=== PATIENT | male | born 1975 | race Caucasian/White ===

== ENCOUNTER 2016-10-16 10:55 | Emergency (ER) | payer SELFPAY ==
[~2016-10-16] VITALS: Ht 175.3 cm; Wt 80.0 kg
[2016-10-16 11:48] LABS: BASOPHILS % 0.7 % (0.0-2.0); EOSINOPHILS % 1.5 % (0.0-5.0); HEMATOCRIT. 44.4 % (42.0-52.0); HEMOGLOBIN. 15.7 g/dL (14.0-18.0); MEAN CORPUSCULAR HEMOGLOBIN 32.6 pg (28.0-32.0); MEAN CORPUSCULAR HGB CONC 35.4 g/dL (31.0-37.0); MEAN CORPUSCULAR VOLUME 92.2 fL (80.0-94.0); MEAN PLATELET VOLUME 7.1 fl (7.4-10.4); MONOCYTES % 9.6 % (2.0-8.0); NEUTROPHILS % 70.2 % (40.0-76.0); PLATELET 374 x1000/uL (130-400); RED BLOOD CELL COUNT 4.81 mill/uL (4.7-6.1); RED CELL DISTRIBUTION WIDTH 12.4 % (11.6-14.6); WHITE BLOOD COUNT 9.5 x1000/uL (4.5-11.0)
[2016-10-16 13:30] VITALS: BP 112/78
[2016-10-16 14:00] LABS: ALANINE AMINOTRANSFERASE 24 IU/L (13-61); ALBUMIN 3.4 g/dL (3.4-5.0); AMYLASE 27 IU/L (25-115); ANION GAP 15; CALCIUM 8.8 mg/dL (8.5-10.1); CARBON DIOXIDE 24 mEq/L (21-32); CHLORIDE 100 mEq/L (98-107); INDEX HEMOLYSI 1 (1-3); INDEX ICTERIC 1 (1-4); INDEX LIPEMIC 1 (1-3); LIPASE 84 IU/L (73-393); UREA NITROGEN BLOOD 11 mg/dL (7-21); eGFR > 60 mL/min (>60)
[2016-10-16 14:04] LABS: BETA HYDROXYBUTYRATE 0.4 mMol/L (0.0-0.3); TROPONIN I < 0.02 ng/mL (0.00-0.04)
== END 2016-10-16 14:24 | disposition home or self-care (01) ==
LOC: ER 12:06
DX: E11.65 Type 2 diabetes mellitus with hyperglycemia (principal); E78.00 Pure hypercholesterolemia, unspecified; E05.90 Thyrotoxicosis, unspecified without thyrotoxic crisis or storm; G62.9 Polyneuropathy, unspecified
CPT/HCPCS: 36415; 71010; 80053; 82010; 82150; 82962; 83690; 84484; 85025; 93005; 99285; Z7610

== ENCOUNTER 2019-06-17 18:37 | Emergency (ER) | payer OTHER ==
[~2019-06-17] VITALS: Ht 175.3 cm; Wt 79.0 kg
[2019-06-17] MEDS ORDERED: KETOROLAC 30MG/ML VIAL IV STA (22:32)
[2019-06-17 22:51] LABS: BASOPHILS % 1.1 % (0.0-2.0); EOSINOPHILS % 3.8 % (0.0-5.0); HEMATOCRIT. 46.9 % (42.0-52.0); HEMOGLOBIN. 16.8 g/dL (14.0-18.0); LYMPHOCYTES % 37.9 % (20.0-50.0); MEAN CORPUSCULAR HEMOGLOBIN 32.3 pg (28.0-32.0); MEAN CORPUSCULAR VOLUME 90.3 fL (80.0-94.0); MONOCYTES % 6.7 % (2.0-8.0); NEUTROPHILS % 50.5 % (40.0-76.0); PLATELET 434 x1000/uL (130-400); RED BLOOD CELL COUNT 5.19 mill/uL (4.7-6.1)
[2019-06-17 22:55] LABS: CHLORIDE 103 mEq/L (98-107)
[2019-06-17 23:38] LABS: CLARITY URINE CLEAR (CLEAR); COLOR URINE YELLOW (YELLOW); KETONES URINE TRACE (NEGATIVE); LEUKOCYTE ESTERASE URINE NEGATIVE (NEGATIVE); NITRITE URINE NEGATIVE (NEGATIVE); OCCULT BLOOD URINE NEGATIVE (NEGATIVE); PH URINE 5.5 (4.5-8.0); PROTEIN URINE NEGATIVE (NEGATIVE); SPECIFIC GRAVITY URINE 1.044 (1.005-1.030); UROBILINOGEN URINE 0.2 E.U./dL (0.2-1.0)
[2019-06-18 01:18] VITALS: BP 125/77
== END 2019-06-18 01:20 | disposition home or self-care (01) ==
LOC: ER 21:00
DX: R10.32 Left lower quadrant pain (principal); R03.0 Elevated blood-pressure reading, without diagnosis of hypertension
CPT/HCPCS: 36415; 74021; 76705; 80053; 81003; 82962; 83690; 85025; 96374; 99284; J1885

== ENCOUNTER 2022-09-01 01:53 | Inpatient (IN) | payer OTHER ==
[~2022-09-01] VITALS: Ht 175.3 cm; Wt 72.1 kg
[2022-09-01] MEDS ORDERED: ONDANSETRON HCL 4MG/2ML INJ IV ONE (02:45)
[2022-09-01] MEDS ORDERED: ACETAMINOPHEN 500MG TABLET PO ONE (02:45)
[2022-09-01 03:35] LABS: BASOPHILS % 0.6 % (0.0-2.0); EOSINOPHILS % 2.3 % (0.0-5.0); HEMATOCRIT. 43.9 % (42.0-52.0); HEMOGLOBIN. 15.3 g/dL (14.0-18.0); LYMPHOCYTES % 24.2 % (20.0-50.0); MEAN CORPUSCULAR HEMOGLOBIN 32.3 pg (28.0-32.0); MEAN CORPUSCULAR VOLUME 92.4 fL (80.0-94.0); MEAN PLATELET VOLUME 7.1 fl (7.4-10.4); MONOCYTES % 11.6 % (2.0-8.0); NEUTROPHILS % 61.3 % (40.0-76.0); PLATELET 374 x1000/uL (130-400); RED BLOOD CELL COUNT 4.75 mill/uL (4.7-6.1); RED CELL DISTRIBUTION WIDTH 12.6 % (11.6-14.6)
[2022-09-01 03:37] LABS: CHLORIDE 103 mEq/L (98-107)
[2022-09-01 03:41] LABS: PROTHROMBIN TIME 10.8 sec (9.6-11.0)
[2022-09-01] MEDS ORDERED: ONDANSETRON HCL 4MG/2ML INJ IV PRN (08:30)
[2022-09-01] MEDS ORDERED: KETOROLAC 30MG/ML VIAL IV PRN (08:30)
[2022-09-01] MEDS ORDERED: DEXTROSE 50% WATER 50ML SYRINGE IV PRN (08:30)
[2022-09-01] MEDS ORDERED: ACETAMINOPHEN 325MG TABLET PO PRN (08:30)
[2022-09-01] MEDS: BLOOD SUGAR DIAGNOSTIC STRIP TEST SCH ×4 (09:00→20:17)
[2022-09-01 11:00] VITALS: BP 104/64
[2022-09-01] MEDS ORDERED: LOSA25TA3 PO (11:38)
[2022-09-01] MEDS ORDERED: ATOR-2 PO (11:38)
[2022-09-01] MEDS ORDERED: LOSA25TA3 MT (11:38)
[2022-09-01] MEDS ORDERED: ASPI-1497 PO (11:38)
[2022-09-01] MEDS ORDERED: LEVO75TA7 PO (11:38)
[2022-09-01] MEDS ORDERED: LEVO25TA7 PO (11:38)
[2022-09-01 11:43] VITALS: BP 111/64
[2022-09-01 12:15] VITALS: BP 112/68
[2022-09-01] MEDS: INSULIN LISPRO 100 UNITS/ML SUBCUT SCH ×3 (12:25→20:22)
[2022-09-01] MEDS: ENOXAPARIN 40MG/0.4ML SYR SUBCUT SCH (12:26)
[2022-09-01] MEDS: ATORVASTATIN CALCIUM 40MG TABLET PO SCH (20:15)
[2022-09-02] VITALS: BP 104/69
[2022-09-02] MEDS: BLOOD SUGAR DIAGNOSTIC STRIP TEST SCH ×4 (06:06→21:00)
[2022-09-02] MEDS: INSULIN LISPRO 100 UNITS/ML SUBCUT SCH ×4 (06:10→21:00)
[2022-09-02 08:00] VITALS: BP 111/70
[2022-09-02] MEDS: ENOXAPARIN 40MG/0.4ML SYR SUBCUT SCH (08:53)
[2022-09-02] MEDS: INSULIN GLARGINE 100 UNITS/ML SUBCUT SCH ×2 (11:22→22:00)
[2022-09-02 12:00] VITALS: BP 129/71
[2022-09-02] MEDS ORDERED: GADOTERATE MEGLUMINE 5 MMOL/10 ML VIAL IV ONE (14:09)
[2022-09-02 16:00] VITALS: BP 122/78
[2022-09-02 19:27] LABS: *AMPHETAMINES SCREEN URINE NEGATIVE (NEGATIVE); *BARBITURATES SCREEN URINE NEGATIVE (NEGATIVE); *BENZODIAZEPINES SCREEN URINE NEGATIVE (NEGATIVE); *COCAINE SCREEN URINE NEGATIVE (NEGATIVE); CANNABINOID URINE SCREEN NEGATIVE (NEGATIVE); METHADONE URINE SCREEN NEGATIVE (NEGATIVE); OPIATES URINE SCREEN NEGATIVE (NEGATIVE); PHENCYCLIDINE URINE SCREEN NEGATIVE (NEGATIVE)
[2022-09-02 20:00] VITALS: BP 124/67
[2022-09-02] MEDS: ATORVASTATIN CALCIUM 40MG TABLET PO SCH (21:00)
[2022-09-03] VITALS: BP 113/77
[2022-09-03 04:00] VITALS: BP 117/61
[2022-09-03] MEDS: INSULIN LISPRO 100 UNITS/ML SUBCUT SCH ×4 (06:36→21:10)
[2022-09-03] MEDS: BLOOD SUGAR DIAGNOSTIC STRIP TEST SCH ×4 (07:10→21:11)
[2022-09-03 08:00] VITALS: BP 113/64
[2022-09-03] MEDS: ENOXAPARIN 40MG/0.4ML SYR SUBCUT SCH (10:13)
[2022-09-03] MEDS: INSULIN GLARGINE 100 UNITS/ML SUBCUT SCH ×2 (10:16→21:10)
[2022-09-03 12:00] VITALS: BP 123/71
[2022-09-03 16:00] VITALS: BP 115/66
[2022-09-03 20:00] VITALS: BP 115/74
[2022-09-03] MEDS: ATORVASTATIN CALCIUM 40MG TABLET PO SCH (21:08)
[2022-09-04] VITALS: BP 112/60
[2022-09-04 04:00] VITALS: BP 110/72
[2022-09-04] MEDS: BLOOD SUGAR DIAGNOSTIC STRIP TEST SCH (05:58)
[2022-09-04] MEDS: INSULIN LISPRO 100 UNITS/ML SUBCUT SCH (06:08)
[2022-09-04 08:00] VITALS: BP 112/67
[2022-09-04] MEDS: ENOXAPARIN 40MG/0.4ML SYR SUBCUT SCH (09:26)
[2022-09-04] MEDS: INSULIN GLARGINE 100 UNITS/ML SUBCUT SCH (09:27)
[2022-09-04 10:03] VITALS: BP 112/67
== END 2022-09-04 10:40 | disposition home or self-care (01) | DRG 45 ==
LOC: ER 01:53 → 8WST 05:58 → EDBEDREQTM 06:05 → EDBEDREQ 06:05
PROVIDERS: ADMIT Internal Medicine; ATTEND Internal Medicine
DX: I63.9 Cerebral infarction, unspecified (principal); E87.1 Hypo-osmolality and hyponatremia; E05.90 Thyrotoxicosis, unspecified without thyrotoxic crisis or storm; E11.65 Type 2 diabetes mellitus with hyperglycemia; E78.00 Pure hypercholesterolemia, unspecified; I10 Essential (primary) hypertension; Z86.73 Personal history of transient ischemic attack (TIA), and cerebral infarction without residual deficits; R29.810 Facial weakness; R29.702 NIHSS score 2
CPT/HCPCS: 36415; 70551; 70552; 80053; 80305; 82962; 85025; 87426; 99285; A9577; J1650; J1815; J1885; J2405